=== PATIENT | female | born 1960 | race Two or more races ===

== ENCOUNTER 2019-05-19 14:18 | Emergency (ER) | payer BC ==
[~2019-05-19] VITALS: Ht 172.7 cm; Wt 77.0 kg
[2019-05-19] MEDS ORDERED: KETOROLAC 60MG/2ML VIAL IM ONE (17:15)
[2019-05-19 17:23] VITALS: BP 140/85
== END 2019-05-19 17:24 | disposition home or self-care (01) ==
LOC: ER 14:18
DX: M54.40 Lumbago with sciatica, unspecified side (principal)
CPT/HCPCS: 96372; 99283; J1885

== ENCOUNTER 2019-06-15 13:41 | Inpatient (IN) | payer BC ==
[~2019-06-15] VITALS: Ht 170.2 cm; Wt 69.9 kg
[2019-06-15] MEDS ORDERED: SODIUM CHLORIDE 0.9% 1,000 ML IV ONE (15:22)
[2019-06-15] MEDS ORDERED: MORPHINE SULFATE 4 MG/ML CPJ (NOT FOR IM USE) IV ONE (16:00)
[2019-06-15] MEDS ORDERED: ONDANSETRON HCL 4MG/2ML INJ IV ONE (16:00)
[2019-06-15 16:05] LABS: HEMATOCRIT. 22.4 % (36.0-48.0); HEMOGLOBIN. 7.5 g/dL (12.0-16.0); MEAN CORPUSCULAR HEMOGLOBIN 28.4 pg (28.0-32.0); MEAN CORPUSCULAR VOLUME 84.6 fL (81.0-99.0); MEAN PLATELET VOLUME 10.1 fl (7.4-10.4); PLATELET 326 x1000/uL (130-400); RED BLOOD CELL COUNT 2.65 mill/uL (4.2-5.4); RED CELL DISTRIBUTION WIDTH 16.8 % (11.6-14.6)
[2019-06-15 16:07] LABS: CHLORIDE 91 mEq/L (98-107)
[2019-06-15 16:11] LABS: INR 1.2; PARTIAL THROMBOPLASTIN TIME 29.2 sec (23.4-31.0); PROTHROMBIN TIME 12.4 sec (9.6-11.0)
[2019-06-15 17:33] LABS: NUCLEATED RED BLOOD CELLS 1 /100 WBC; PLATELET ESTIMATE NORMAL
[2019-06-15 20:00] VITALS: BP 122/63
[2019-06-15] MEDS ORDERED: VIT E PO (21:57)
[2019-06-15 22:00] VITALS: BP 107/56
[2019-06-15] MEDS ORDERED: VITA-137 PO (22:01)
[2019-06-15] MEDS ORDERED: IBUP-2030 PO (22:03)
[2019-06-15] MEDS ORDERED: TRAM50TA3 PO (22:11)
[2019-06-15] MEDS ORDERED: CARI250T PO (22:13)
[2019-06-15] MEDS ORDERED: MULT-1203 PO (22:13)
[2019-06-15 23:00] VITALS: BP 103/48
[2019-06-15] MEDS: CARISOPRODOL 350 MG TABLET PO SCH (23:00)
[2019-06-15] MEDS ORDERED: POTASSIUM CHLORIDE 20MEQ TABLET SR PO NR (23:00)
[2019-06-15] MEDS: ACETAMINOPHEN 325MG TABLET PO PRN (23:20)
[2019-06-16] VITALS (16 sets, daily range): BP systolic 97–128; BP diastolic 48–69
[2019-06-16 04:27] LABS: CLARITY URINE CLEAR (CLEAR); COLOR URINE DARK YELLOW (YELLOW); KETONES URINE NEGATIVE (NEGATIVE); LEUKOCYTE ESTERASE URINE 2+ (NEGATIVE); NITRITE URINE NEGATIVE (NEGATIVE); OCCULT BLOOD URINE NEGATIVE (NEGATIVE); PH URINE 5.5 (4.5-8.0); PROTEIN URINE TRACE (NEGATIVE); SPECIFIC GRAVITY URINE 1.015 (1.005-1.030)
[2019-06-16] MEDS ORDERED: VANCOMYCIN 1 G PREMIX 200 ML IV ONE (07:00)
[2019-06-16] MEDS ORDERED: POTASSIUM CHLORIDE 20MEQ TABLET SR PO NR (09:00)
[2019-06-16] MEDS ORDERED: B COMPLEX PO SCH (09:00)
[2019-06-16] MEDS ORDERED: VANCOMYCIN 1500MG in DEXTROSE 5% WATER 250ML IV SCH (09:00)
[2019-06-16] MEDS: DEXT 5%/LACTATED RINGERS 1,000 ML IV SCH ×2 (11:16→20:00)
[2019-06-16] MEDS: ACETAMINOPHEN 325MG TABLET PO PRN (11:21)
[2019-06-16] MEDS: VITAMIN E ACETATE 400 UNITS CAPSULE PO SCH (11:21)
[2019-06-16] MEDS: MULTIVITAMINS,THER W-MINERALS TABLET PO SCH (11:22)
[2019-06-16] MEDS: CEFTRIAXONE 1 G PREMIX 50 ML IV SCH (14:32)
[2019-06-16] MEDS: CARISOPRODOL 350 MG TABLET PO SCH (21:28)
[2019-06-16] MEDS: VANCOMYCIN 1250MG in DEXTROSE 5% WATER 250ML IV SCH (21:28)
[2019-06-17] VITALS (12 sets, daily range): BP systolic 90–111; BP diastolic 45–75
[2019-06-17] MEDS: DEXT 5%/LACTATED RINGERS 1,000 ML IV SCH ×3 (02:30→19:46)
[2019-06-17 06:38] LABS: MEAN CORPUSCULAR HEMOGLOBIN 27.6 pg (28.0-32.0); MEAN CORPUSCULAR VOLUME 84.3 fL (81.0-99.0); MEAN PLATELET VOLUME 9.9 fl (7.4-10.4); PLATELET 223 x1000/uL (130-400); RED BLOOD CELL COUNT 2.11 mill/uL (4.2-5.4); RED CELL DISTRIBUTION WIDTH 16.6 % (11.6-14.6)
[2019-06-17 06:54] LABS: CHLORIDE 99 mEq/L (98-107)
[2019-06-17 07:07] LABS: HEMATOCRIT. 17.8 % (36.0-48.0); HEMOGLOBIN. 5.8 g/dL (12.0-16.0)
[2019-06-17] MEDS: VITAMIN E ACETATE 400 UNITS CAPSULE PO SCH (09:27)
[2019-06-17] MEDS: VANCOMYCIN 1250MG in DEXTROSE 5% WATER 250ML IV SCH ×2 (09:28→21:39)
[2019-06-17] MEDS: MULTIVITAMINS,THER W-MINERALS TABLET PO SCH (09:28)
[2019-06-17 09:56] LABS: PLATELET ESTIMATE NORMAL
[2019-06-17] MEDS: CEFTRIAXONE 1 G PREMIX 50 ML IV SCH (14:03)
[2019-06-17] MEDS: IRON SUCROSE COMPLEX 100 MG/5 ML ML IV SCH (14:52)
[2019-06-17] MEDS ORDERED: OMEPRAZOLE 20MG CAPSULE EXTENDED RELEASE PO SCH (21:00)
[2019-06-17] MEDS: CARISOPRODOL 350 MG TABLET PO SCH (21:39)
[2019-06-17] MEDS: EPOETIN ALFA 4000UNITS/ML VIAL SUBCUT SCH (21:39)
[2019-06-17] MEDS: EPOETIN ALFA 10000UNITS/ML VIAL SUBCUT SCH (21:41)
[2019-06-17] MEDS: OMEPRAZOLE 20MG CAPSULE EXTENDED RELEASE PO SCH (21:47)
[2019-06-18] VITALS (12 sets, daily range): BP systolic 100–129; BP diastolic 45–54
[2019-06-18] MEDS: DEXT 5%/LACTATED RINGERS 1,000 ML IV SCH ×3 (02:45→20:38)
[2019-06-18] MEDS: OMEPRAZOLE 20MG CAPSULE EXTENDED RELEASE PO SCH ×2 (05:50→20:38)
[2019-06-18 07:58] LABS: BASOPHILS % 0.1 % (0.0-2.0); EOSINOPHILS % 0.2 % (0.0-5.0); LYMPHOCYTES % 8.9 % (20.0-50.0); MEAN CORPUSCULAR HEMOGLOBIN 27.6 pg (28.0-32.0); MEAN CORPUSCULAR VOLUME 85.9 fL (81.0-99.0); MEAN PLATELET VOLUME 9.6 fl (7.4-10.4); MONOCYTES % 6.4 % (2.0-8.0); NEUTROPHILS % 84.4 % (40.0-76.0); PLATELET 271 x1000/uL (130-400); RED BLOOD CELL COUNT 2.16 mill/uL (4.2-5.4); RED CELL DISTRIBUTION WIDTH 16.6 % (11.6-14.6)
[2019-06-18 08:12] LABS: CHLORIDE 103 mEq/L (98-107)
[2019-06-18] MEDS: MULTIVITAMINS,THER W-MINERALS TABLET PO SCH (08:30)
[2019-06-18] MEDS: VANCOMYCIN 1250MG in DEXTROSE 5% WATER 250ML IV SCH (08:30)
[2019-06-18] MEDS: VITAMIN E ACETATE 400 UNITS CAPSULE PO SCH (08:30)
[2019-06-18] MEDS: IRON SUCROSE COMPLEX 100 MG/5 ML ML IV SCH (08:30)
[2019-06-18 08:42] LABS: HEMATOCRIT. 18.6 % (36.0-48.0)
[2019-06-18] MEDS: CEFTRIAXONE 1 G PREMIX 50 ML IV SCH (14:00)
[2019-06-18 16:19] LABS: TOTAL IRON BINDING CAPACITY 162 ug/dL (250-450)
[2019-06-18] MEDS: TRAMADOL 50MG TABLET PO PRN (18:13)
[2019-06-18] MEDS: CARISOPRODOL 350 MG TABLET PO SCH (18:13)
[2019-06-18] MEDS: VANCOMYCIN 1 G PREMIX 200 ML IV SCH (20:43)
[2019-06-19] VITALS (12 sets, daily range): BP systolic 103–130; BP diastolic 45–70
[2019-06-19] MEDS: DEXT 5%/LACTATED RINGERS 1,000 ML IV SCH ×2 (02:52→10:47)
[2019-06-19] MEDS: OMEPRAZOLE 20MG CAPSULE EXTENDED RELEASE PO SCH ×2 (06:25→20:43)
[2019-06-19 06:57] LABS: BASOPHILS % 0.3 % (0.0-2.0); EOSINOPHILS % 0.2 % (0.0-5.0); LYMPHOCYTES % 11.1 % (20.0-50.0); MEAN CORPUSCULAR HEMOGLOBIN 27.6 pg (28.0-32.0); MEAN CORPUSCULAR VOLUME 86.3 fL (81.0-99.0); MEAN PLATELET VOLUME 9.1 fl (7.4-10.4); MONOCYTES % 6.7 % (2.0-8.0); NEUTROPHILS % 81.7 % (40.0-76.0); PLATELET 355 x1000/uL (130-400); RED BLOOD CELL COUNT 2.22 mill/uL (4.2-5.4); RED CELL DISTRIBUTION WIDTH 17.1 % (11.6-14.6)
[2019-06-19 07:14] LABS: HEMOGLOBIN. 6.1 g/dL (12.0-16.0)
[2019-06-19 07:15] LABS: HEMATOCRIT. 19.1 % (36.0-48.0)
[2019-06-19 07:20] LABS: CHLORIDE 104 mEq/L (98-107)
[2019-06-19 07:32] LABS: PHOSPHORUS 3.4 mg/dL (2.5-4.9)
[2019-06-19] MEDS: MULTIVITAMINS,THER W-MINERALS TABLET PO SCH (08:21)
[2019-06-19] MEDS: VANCOMYCIN 1 G PREMIX 200 ML IV SCH (08:21)
[2019-06-19] MEDS: VITAMIN E ACETATE 400 UNITS CAPSULE PO SCH (08:21)
[2019-06-19] MEDS: IRON SUCROSE COMPLEX 100 MG/5 ML ML IV SCH (08:28)
[2019-06-19] MEDS: CEFTRIAXONE 1 G PREMIX 50 ML IV SCH (13:09)
[2019-06-19] MEDS ORDERED: IPRATROPIUM/ALBUTEROL 0.5-3(2.5)MG/3ML NEB HHN PRN (17:30)
[2019-06-19] MEDS: CARISOPRODOL 350 MG TABLET PO SCH (20:35)
[2019-06-19] MEDS: METOPROLOL TARTRATE 25MG TABLET PO SCH (20:43)
[2019-06-19] MEDS: EPOETIN ALFA 4000UNITS/ML VIAL SUBCUT SCH (20:44)
[2019-06-19] MEDS: ACETAMINOPHEN 325MG TABLET PO PRN (20:44)
[2019-06-19] MEDS: EPOETIN ALFA 10000UNITS/ML VIAL SUBCUT SCH (20:45)
[2019-06-19] MEDS: TRAMADOL 50MG TABLET PO PRN (21:06)
[2019-06-19] MEDS: FLUTICASONE/VILANTEROL 200-25 BLST.W.DEV ORI SCH (21:10)
[2019-06-20] VITALS (10 sets, daily range): BP systolic 102–120; BP diastolic 33–53
[2019-06-20] MEDS: OMEPRAZOLE 20MG CAPSULE EXTENDED RELEASE PO SCH (06:02)
[2019-06-20 06:24] LABS: BASOPHILS % 0.4 % (0.0-2.0); EOSINOPHILS % 0.2 % (0.0-5.0); LYMPHOCYTES % 8.8 % (20.0-50.0); MEAN PLATELET VOLUME 8.7 fl (7.4-10.4); MONOCYTES % 6.5 % (2.0-8.0); NEUTROPHILS % 84.1 % (40.0-76.0); PLATELET 410 x1000/uL (130-400); RED BLOOD CELL COUNT 2.42 mill/uL (4.2-5.4)
[2019-06-20 06:25] LABS: CHLORIDE 105 mEq/L (98-107)
[2019-06-20 06:38] LABS: MEAN CORPUSCULAR HEMOGLOBIN 27.4 pg (28.0-32.0); MEAN CORPUSCULAR VOLUME 87.2 fL (81.0-99.0)
[2019-06-20 06:39] LABS: HEMOGLOBIN. 6.7 g/dL (12.0-16.0)
[2019-06-20 06:40] LABS: HEMATOCRIT. 21.2 % (36.0-48.0)
[2019-06-20] MEDS: IRON SUCROSE COMPLEX 100 MG/5 ML ML IV SCH ×2 (09:00→09:56)
[2019-06-20] MEDS: VITAMIN E ACETATE 400 UNITS CAPSULE PO SCH (09:55)
[2019-06-20] MEDS: MULTIVITAMINS,THER W-MINERALS TABLET PO SCH (09:55)
[2019-06-20] MEDS: FLUTICASONE/VILANTEROL 200-25 BLST.W.DEV ORI SCH (09:56)
[2019-06-20] MEDS: METOPROLOL TARTRATE 25MG TABLET PO SCH (09:56)
[2019-06-20] MEDS: CEFTRIAXONE 1 G PREMIX 50 ML IV SCH (14:03)
== END 2019-06-20 17:30 | disposition home or self-care (01) | DRG 871 ==
LOC: ER 13:41 → EDBEDREQ 17:16 → 3WST 17:55 → EDBEDREQ 18:03 → ENRESERV 18:58
PROVIDERS: ADMIT Internal Medicine Pulmonary Disease; ATTEND Internal Medicine Pulmonary Disease
DX: A40.1 Sepsis due to streptococcus, group B (principal); E43 Unspecified severe protein-calorie malnutrition; E87.1 Hypo-osmolality and hyponatremia; I31.3 Pericardial effusion (noninflammatory); M47.12 Other spondylosis with myelopathy, cervical region; K92.2 Gastrointestinal hemorrhage, unspecified; N12 Tubulo-interstitial nephritis, not specified as acute or chronic; M48.02 Spinal stenosis, cervical region; E87.6 Hypokalemia; D50.9 Iron deficiency anemia, unspecified; M47.816 Spondylosis without myelopathy or radiculopathy, lumbar region; E03.9 Hypothyroidism, unspecified; E11.9 Type 2 diabetes mellitus without complications; E78.5 Hyperlipidemia, unspecified; F17.210 Nicotine dependence, cigarettes, uncomplicated; G89.29 Other chronic pain; I10 Essential (primary) hypertension; R74.0 Nonspecific elevation of levels of transaminase and lactic acid dehydrogenase [LDH]; B95.1 Streptococcus, group B, as the cause of diseases classified elsewhere; I25.10 Atherosclerotic heart disease of native coronary artery without angina pectoris; J44.9 Chronic obstructive pulmonary disease, unspecified; M47.896 Other spondylosis, lumbar region; M51.36 Other intervertebral disc degeneration, lumbar region; R62.7 Adult failure to thrive; Z53.20 Procedure and treatment not carried out because of patient's decision for unspecified reasons; Z79.1 Long term (current) use of non-steroidal anti-inflammatories (NSAID); Z79.891 Long term (current) use of opiate analgesic; Z82.49 Family history of ischemic heart disease and other diseases of the circulatory system; Z90.710 Acquired absence of both cervix and uterus; Z82.61 Family history of arthritis; Z68.24 Body mass index [BMI] 24.0-24.9, adult
CPT/HCPCS: 36415; 71045; 72141; 72146; 72148; 76700; 80048; 80076; 80202; 80307; 81003; 82270; 82728; 83540; 83550; 83735; 84100; 84484; 87077; 87186; 93005; 93306; 99285; J0696; J0885; J2270; J2405; J3370; J7030; J7060; J7121